=== PATIENT | male | born 1990 | race Caucasian/White ===

== ENCOUNTER 2019-01-10 19:05 | Emergency (ER) | payer OTHER ==
[~2019-01-10] VITALS: Ht 170.2 cm; Wt 100.6 kg
[2019-01-10 19:31] VITALS: BP 124/62
[2019-01-10] MEDS ORDERED: LIDOCAINE-MPF 1%, 5ML INFIL ONE (20:00)
[2019-01-10] MEDS ORDERED: PLEASE ENTER ALLERGIES MC SCH (20:00)
[2019-01-10] MEDS ORDERED: COUMADIN (20:46)
[2019-01-10] MEDS ORDERED: LIDOCAINE-MPF 1%, 5ML ONE (20:50)
[2019-01-10] MEDS ORDERED: HYDROcodone/APAP 5/325 TABLET ONE (23:03)
[2019-01-10] MEDS ORDERED: BACITRACIN ZINC OINT 500U/GM, 0.9 GM ONE (23:27)
[2019-01-10] MEDS ORDERED: HYDROcodone/APAP 5/325 TABLET PO ONE (23:30)
== END 2019-01-10 23:39 | disposition home or self-care (01) ==
LOC: ED 23:00
DX: S61.213A Laceration without foreign body of left middle finger without damage to nail, initial encounter (principal); S61.211A Laceration without foreign body of left index finger without damage to nail, initial encounter; S61.215A Laceration without foreign body of left ring finger without damage to nail, initial encounter; X58.XXXA Exposure to other specified factors, initial encounter; Y93.89 Activity, other specified; Y92.69 Other specified industrial and construction area as the place of occurrence of the external cause; Y99.8 Other external cause status
CPT/HCPCS: 12042